=== PATIENT | male | born 1950 | race Caucasian/White ===

== ENCOUNTER 2020-09-24 07:30 | Emergency (ER) | payer MEDICARE, MEDICAID ==
[~2020-09-24] VITALS: Ht 170.2 cm; Wt 76.7 kg
[2020-09-24 07:39] VITALS: BP 137/90; Ht 170.2 cm; Wt 76.7 kg
== END 2020-09-24 10:22 | disposition home or self-care (01) ==
LOC: ED 07:30
DX: N50.811 Right testicular pain (principal); Z88.0 Allergy status to penicillin